=== PATIENT | male | born 2000 | race Hispanic/Latino ===

== ENCOUNTER 2019-10-25 04:02 | Emergency (ER) | payer OTHER, SELFPAY ==
[2019-10-25] MEDS ORDERED: Ketorolac Tromethamine 30 MG/ML VIAL ONE (04:21)
== END 2019-10-25 05:25 | disposition home or self-care (01) ==
LOC: ERS 04:02
DX: R51 Headache (principal); R03.0 Elevated blood-pressure reading, without diagnosis of hypertension
CPT/HCPCS: 96372; 99283; J1885

== ENCOUNTER 2024-05-16 19:43 | Emergency (ER) | payer SELFPAY ==
[2024-05-16 20:35] LABS: #Basophils Less than 0.03 10x3/uL (0.0-0.2); %Basophils 0.2 % (0.0-1.0); %Eosinophils 0.2 % (0.0-10.0); %Lymphocytes 11.1 % (21.0-51.0); %Monocytes 7.3 % (0.0-10.0); %Neutrophils 80.9 % (42.0-75.0); Hematocrit 48.7 % (42.0-52.0); Hemoglobin 15.9 g/dL (14.0-18.0); Mean Corpuscular HGB CONC 32.6 g/dL (32.0-36.0); Mean Corpuscular Hemoglobin 26.2 pg (27.0-31.0); Mean Corpuscular Volume 80.2 fL (78.0-98.0); Mean Platelet Volume 10.5 fL (7.4-10.4); Platelet Count 339 10x3/uL (130-400); RBC Distribution Width 13.5 % (11.5-14.5); Red Blood Cell (RBC) Count 6.07 mill/uL (4.70-6.10)
[2024-05-16 20:54] LABS: ALT (SGPT) 130 U/L (Less than 45); AST (SGOT) 65 U/L (11-34); Albumin 4.7 g/dL (3.1-4.5); Alkaline Phosphatase 92 U/L (40-110); Anion Gap 16 mmol/L (10-20); BUN (Urea Nitrogen) 10 mg/dL (8.9-20.6); Calc. Creatinine Clearance 0 mL/min (70-130); Calcium 9.4 mg/dL (7.8-10.44); Carbon Dioxide 23 mmol/L (22-29); Chloride 106 mmol/L (98-107); Estimated GFR 129; Globulin 3.9 g/dL (2.4-3.5); Glucose 97 mg/dL (70-105); Lipase 13 U/L (8-78); Potassium 3.8 mmol/L (3.5-5.1); Protein, Total 8.6 g/dL (6.0-8.3); Sodium 141 mmol/L (136-145)
[2024-05-16 22:18] LABS: Bacteria/HPF None Seen HPF (None Seen); Bilirubin Negative (Negative); Blood, Urine Negative (Negative); CAUTI Indications for Culture Pelvic or flank pain; Clarity Clear (Clear); Glucose, Urine (Dipstick) Normal (Negative); Ketone, Urine 20 mg/dL (Negative); Leukocyte Negative Leu/uL (Negative); Nitrite Negative (Negative); Protein, Urine (Dipstick) 20 mg/dL (Neg-Trace); RBC/HPF 0-3 HPF (0-3); Specific Gravity, Urine 1.039 (1.002-1.036); Squamous Epithelial 0-3 HPF (0-3); WBC/HPF 0-3 HPF (0-3)
[2024-05-16 22:20] LABS: Urine Culture Reflex No No
[2024-05-16] MEDS ORDERED: Ondansetron PF 4 MG/2 ML Vial ONE (22:43)
[2024-05-16] MEDS ORDERED: Ketorolac Tromethamine 30 MG (1 mL) VIAL ONE (22:43)
== END 2024-05-16 23:46 | disposition home or self-care (01) ==
LOC: ERS 19:43
DX: K76.0 Fatty (change of) liver, not elsewhere classified (principal); R11.2 Nausea with vomiting, unspecified
CPT/HCPCS: 36415; 71045; 76705; 80053; 81001; 83690; 85025; 96361; 96374; 96375; J1885; J2405